=== PATIENT | female | born 2000 | race Two or more races ===

== ENCOUNTER 2024-11-01 10:22 | Emergency (ER) | payer OTHER ==
[~2024-11-01] VITALS: Ht 160 cm; Wt 68.0 kg
[2024-11-01] MEDS ORDERED: KETOROLAC TROMETHAMINE 60 MG VIAL IM STA (11:52)
[2024-11-01] MEDS ORDERED: ORPHENADRINE CITRATE 30 MG/ML AMPUL IM STA (11:53)
[2024-11-01] MEDS ORDERED: ORPHENADRINE CITRATE 30 MG/ML AMPUL ONE (11:57)
[2024-11-01] MEDS ORDERED: KETOROLAC TROMETHAMINE 60 MG VIAL IM ONE (11:57)
== END 2024-11-01 13:35 | disposition home or self-care (01) ==
LOC: ER 10:38
DX: M54.89 Other dorsalgia (principal)